=== PATIENT | male | born 1970 | race Caucasian/White ===

== ENCOUNTER 2022-10-15 09:54 | Emergency (ER) | payer MEDICAID ==
[~2022-10-15] VITALS: Ht 180.3 cm; Wt 111.0 kg
[2022-10-15 10:20] VITALS: BP 148/93
== END 2022-10-15 11:10 | disposition home or self-care (01) ==
LOC: ER 09:54
DX: E11.9 Type 2 diabetes mellitus without complications (principal); Z76.0 Encounter for issue of repeat prescription; Z87.39 Personal history of other diseases of the musculoskeletal system and connective tissue

== ENCOUNTER 2023-02-03 15:54 | Emergency (ER) | payer MEDICAID ==
[~2023-02-03] VITALS: Ht 177.8 cm; Wt 111.3 kg
[2023-02-03 16:57] LABS: Basophils # (auto) 0.1 10 ^3/uL (0-0.2); Basophils % (auto) 1.1 % (0.0-2.0); Eosinophils # (auto) 0.2 10 ^3/uL (0-0.8); Eosinophils % (auto) 1.9 % (0.0-7.0); Hematocrit 43.7 % (41.0-53.0); Hemoglobin 14.5 g/dL (13.5-17.5); Lymphocytes # (auto) 1.7 10 ^3/uL (0.4-5.4); Lymphocytes % (auto) 18.4 % (10.0-50.0); Mean Corpuscular Hemoglobin 29.3 pg (28.0-32.0); Mean Corpuscular Hgb Conc. 33.2 g/dL (32.0-36.0); Mean Corpuscular Volume 88.2 fL (80.0-100.0); Monocytes # (auto) 0.6 10 ^3/uL (0-1.3); Monocytes % (auto) 6.2 % (0.0-12.0); Neutrophils # (auto) 6.7 10 ^3/uL (1.6-8.6); Neutrophils % (auto) 72.4 % (37.0-80.0); Nucleated Red Blood Cells % 0.1 %; Red Blood Cells 4.96 10^6/uL (4.5-5.90); White Blood Cell 9.3 10^3/uL (4.4-10.8)
[2023-02-03 17:18] LABS: Alanine Aminotransferase 31 U/L (16-61); Albumin 3.7 g/dL (3.4-5.0); Anion Gap 7 (5-15); Aspartate Aminotransferase 15 U/L (15-37); Blood Alcohol < 3.0 mg/dL (<10); Blood Urea Nitrogen 18 mg/dL (7-18); Calcium 8.8 mg/dL (8.5-10.1); Carbon Dioxide 25 mmol/L (21-32); Chloride 110 mmol/L (98-107); Glucose 149 mg/dL (74-106); Potassium 3.6 mmol/L (3.5-5.1); Sodium 142 mmol/L (136-145)
[2023-02-03 17:21] LABS: Alkaline Phosphatase 53 U/L (45-117); BUN/Creatinine Ratio 18.6 (10.0-20.0); Bilirubin, Total 0.4 mg/dL (0.2-1.0); GFR African American 105 mL/min; GFR Non-African American 87 mL/min; Total Protein 6.5 g/dL (6.4-8.2)
[2023-02-03 17:33] LABS: INR 0.99 (0.9-1.15)
[2023-02-03] MEDS ORDERED: LACTATED RINGER'S 1,000 ML IV ONE (17:45)
[2023-02-03] MEDS ORDERED: KETOROLAC TROMETH 30 MG/ML 1ML VIAL IV ONE (18:30)
[2023-02-03 20:19] VITALS: BP 100/59; PULSE 81; RESP 16; TEMP 99; O2SAT 96
== END 2023-02-03 20:25 | disposition home or self-care (01) ==
LOC: ER 15:54
DX: E86.0 Dehydration (principal); T67.5XXA Heat exhaustion, unspecified, initial encounter; R55 Syncope and collapse; E11.9 Type 2 diabetes mellitus without complications; I10 Essential (primary) hypertension; X58.XXXA Exposure to other specified factors, initial encounter; Y93.89 Activity, other specified; Y92.89 Other specified places as the place of occurrence of the external cause; Y99.8 Other external cause status
CPT/HCPCS: 36415; 71045; 80053; 80320; 82140; 83605; 83880; 84484; 85025; 85379; 85610; 93005; 96374; 99285; J1885

== ENCOUNTER 2023-05-26 15:58 | Emergency (ER) | payer MEDICAID ==
[~2023-05-26] VITALS: Ht 177.8 cm; Wt 110.1 kg
[2023-05-26 16:30] VITALS: BP 114/64; RESP 18; O2SAT 98
[2023-05-26 16:37] VITALS: PULSE 92
[2023-05-26] MEDS ORDERED: MORPHINE SULFATE 4 MG/ML SYR/VIAL IV ONE (16:45)
[2023-05-26] MEDS ORDERED: cefTRIAXone 1GM/50ML D5W 50 ML IV ONE (16:45)
[2023-05-26] MEDS ORDERED: ONDANSETRON HCL 4 MG/2 ML VIAL IV ONE (16:45)
[2023-05-26] MEDS ORDERED: metroNIDAZOLE 500MG/100ML 100 ML IV ONE (16:45)
[2023-05-26] MEDS ORDERED: SODIUM CHLORIDE 0.9% 1,000 ML IVB ONE (16:45)
[2023-05-26] MEDS ORDERED: SODIUM CHLORIDE 0.9% 1,000 ML IV ONE (16:45)
[2023-05-26 16:52] LABS: Basophils # (auto) 0.1 10 ^3/uL (0-0.2); Basophils % (auto) 1.4 % (0.0-2.0); Eosinophils # (auto) 0.2 10 ^3/uL (0-0.8); Eosinophils % (auto) 2.3 % (0.0-7.0); Hematocrit 44.8 % (41.0-53.0); Hemoglobin 14.6 g/dL (13.5-17.5); Lymphocytes # (auto) 1.9 10 ^3/uL (0.4-5.4); Lymphocytes % (auto) 22.7 % (10.0-50.0); Mean Corpuscular Hemoglobin 27.2 pg (28.0-32.0); Mean Corpuscular Hgb Conc. 32.7 g/dL (32.0-36.0); Mean Corpuscular Volume 83.3 fL (80.0-100.0); Monocytes # (auto) 0.5 10 ^3/uL (0-1.3); Monocytes % (auto) 6.3 % (0.0-12.0); Neutrophils # (auto) 5.7 10 ^3/uL (1.6-8.6); Neutrophils % (auto) 67.3 % (37.0-80.0); Nucleated Red Blood Cells % 0.2 %; Red Blood Cells 5.37 10^6/uL (4.5-5.90); Red Cell Distribution Width 15.3 % (11.8-14.3); White Blood Cell 8.5 10^3/uL (4.4-10.8)
[2023-05-26 17:07] LABS: Alanine Aminotransferase 32 U/L (7-40); Albumin 4.6 g/dL (3.2-4.8); Alkaline Phosphatase 61 U/L (46-116); Anion Gap 9 (5-15); Aspartate Aminotransferase 20 U/L (13-40); Blood Urea Nitrogen 9 mg/dL (9-23); Calcium 8.9 mg/dL (8.7-10.4); Carbon Dioxide 27 mmol/L (20-30); Chloride 105 mmol/L (98-107); Glucose 169 mg/dL (74-106); Lipase 28 U/L (12-53); Potassium 3.7 mmol/L (3.5-5.1); Sodium 141 mmol/L (136-145)
[2023-05-26 17:08] LABS: Bilirubin, Total 0.5 mg/dL (0.2-1.0); Total Protein 6.6 g/dL (5.7-8.2)
[2023-05-26 17:12] LABS: Urine Bacteria NONE SEEN /hpf (None Seen); Urine Blood Negative /uL (Negative); Urine Clarity Clear (Clear); Urine Color Yellow (Yellow); Urine Protein, UAD Negative (Negative); Urine Specific Gravity 1.043 (1.001-1.035); Urine WBC <1 /hpf (0 - 3); Urine pH 6.5 (5.0-8.0)
[2023-05-26] MEDS ORDERED: IBU600T PO (17:39)
== END 2023-05-26 20:26 | disposition left against medical advice (07) ==
LOC: ER 15:58
DX: K80.20 Calculus of gallbladder without cholecystitis without obstruction (principal); E11.65 Type 2 diabetes mellitus with hyperglycemia; I10 Essential (primary) hypertension
CPT/HCPCS: 36415; 74176; 76705; 80053; 81001; 83605; 83690; 84484; 85025; 87040; 93005

== ENCOUNTER 2024-11-04 11:55 | Inpatient (IN) | payer MEDICAID ==
[~2024-11-04] VITALS: Ht 176.5 cm; Wt 112.3 kg
[~2024-11-04 11:55] MED LIST: IBU600T PO
--- NOTE | 2024-11-04 12:13 | ED.PDOC ---
GI ASSESSMENT HPI Comments 54 year old male presents to the ED with chief complaint of abdominal pain. Patient reports that he has been experiencing RUQ abdominal pain with associated nausea, vomiting, and diarrhea for the past 3 days. Patient denies any fever, chills, hematemesis, melena, or chest pain. Time Seen by : 12:09 Primary Care Provider: KVNG Reviewed Notes: Nurses Notes, Medications, Allergies Allergies: Coded Allergies: NO KNOWN ALLERGIES (Unverified , 10/15/22) Home Meds Active Scripts Ibuprofen Micronized (MOTRIN TABLET) 600 Mg Tb, 600 MG PO TID PRN for 5 Days, #15 TAB *Black box warning-NSAIDS can increase risk of CT & hypertension, GI irritation, ulceration, bleed, perferation. Do not use post cardiac surgery. Use short duration/lowest effective dose. Prov:MALLIKA MCGUIRE MD 05/26/23 Information Source: Patient Mode of Arrival: Ambulatory Timing: Days Duration: Since onset Prehospital treatment: None Quality: Sharp Vomitus: Watery Stool: Watery Severity: Moderate Recent: None Recent Hx of: None Pain Location: RUQ Modifying Factors: Nothing Associated sign and symptoms: Nausea, Vomiting, Diarrhea, Abdominal Pain Past Medical History PAST MEDICAL HISTORY: Arthritis, DM, Gallstones, HTN Surgical History: Denies all surgeries Family History Family History: Reviewed,noncontributory to illness Social History Smoker: Cigarettes Alcohol: Denies ETOH Use Drugs: Denies Drug Use Lives In: Home Constitutional: denies: chills, diaphoresis, fatigue, fever, malaise, sweats, weakness, others EENTM: denies: blurred vision, double vision, ear bleeding, ear discharge, ear drainage, ear pain, ear ringing, eye pain, eye redness, hearing loss, mouth pain, mouth swelling, nasal discharge, nose bleeding, nose congestion, nose pain, photophobia, tearing, throat pain, throat swelling, voice changes, others Respiratory: denies: cough, hemoptysis, orthopnea, SOB at rest, shortness of breath, SOB with excertion, stridor, wheezing, others Cardiovascular: denies: chest pain, dizzy spells, diaphoresis, Dyspnea on exertion, edema, irregular heart beat, left arm pain, lightheadedness, palpitations, PND, syncope, others Gastrointestinal: reports: abdominal pain, diarrhea, nausea, vomiting; denies: abdomen distended, blood streaked bowels, constipated, dysphagia, difficulty swallowing, hematemesis, melena, poor appetite, poor fluid intake, rectal bleeding, rectal pain, others Genitourinary: denies: burning, dysuria, flank pain, frequency, hematuria, incontinence, penile discharge, penile sore, pain, testicle pain, testicle swelling, urgency, others Neurological: denies: dizziness, fainting, headache, left sided numbness, left sided weakness, numbness, paresthesia, pre-existing deficit, right sided numbness, right sided weakness, seizure, speech problems, tingling, tremors, weakness, others Musculoskeletal: denies: back pain, gout, joint pain, joint swelling, muscle pain, muscle stiffness, neck pain, others Integumetry: denies: bruises, change in color, change in hair/nails, dryness, laceration, lesions, lumps, rash, wounds, others Allergic/Immunocompromised: denies: Difficulty Healing, Frequent Infections, Hives, Itching, others Hematologic/Lymphatic: denies: anemia, blood clots, easy bleeding, easy bruising, swollen glands, others Endocrine: denies: excessive hunger, excessive sweating, excessive thirst, excessive urination, flushing, intolerance to cold, intolerance to heat, unexplained weight gain, unexplained weight loss, others Psychiatric: denies: anxiety, bipolar disorder, depression, hopeless, panic disorder, schizophrenia, sleepless, suicidal, others All Other Systems: Reviewed and Negative Physical Exam General Appearance: No Apparent Distress, Normal HEENT: Normal ENT Inspection, Pharynx Normal, TMs Normal Neck: Full Range of Motion, Non-Tender, Normal, Normal Inspection Respiratory: Chest Non-Tender, Lungs Clear, No Accessory Muscle Use, No Respiratory Distress, Normal Breath Sounds Cardiovascular: No Edema, No JVD, No Murmur, No Gallop, Normal Peripheral Pulses, Regular Rate/Rhythm Breast Exam: Deferred Gastrointestinal: No Organomegaly, No Pulsatile Mass, Normal Bowel Sounds, Soft, Tenderness (RUQ tenderness) Genitalia: Deferred Pelvic: Deferred Rectal: Deferred Extremities: No calf tenderness, Normal capillary refill, Normal inspection, Normal range of motion, Non-tender, No pedal edema Musculoskeletal : Apperance: Normal Neurologic: Alert, belt dresser II-XII nml as Tested, No Motor Deficits, Normal Affect, Normal Mood, No Sensory Deficits Cerebellar Function: Normal Reflexes: Normal Skin: Dry, Normal Color, Warm Lymphatic: No Adenopathy Was a procedure done? Was a procedure done?: No GI differential Dx Differential Diagnosis: Appendicitis, Bowel Obstruction, Cholecystitis, Gastritis/PUD, Gastroenteritis, Hernia, Hepatitis, Inflammatory BD, Ischemic Bowel, UTI, Urolithiasis, Electrolyte Imbalance, Impaction, Ischemic Bowel, Mas s, Kidney Stone X-Ray, Labs, Meds, VS Vital Signs Date Time Temp Pulse Resp B/P (MAP) Pulse Ox O2 Delivery O2 Flow Rate FiO2 11/04/24 13:21 119 20 96 Room Air* 0 21 11/04/24 13:14 97.5 119 20 112/72 (85) 96 97.5 11/04/24 12:00 97.9 125 18 113/73 (86) 97 97.9 Lab Test 11/04/24 12:25 Range/Units White Blood Count 7.0 4.4-10.8 10^3/uL Red Blood Count 5.84 4.5-5.90 10^6/uL Hemoglobin 13.8 13.5-17.5 g/dL Hematocrit 43.5 41.0-53.0 % Mean Corpuscular Volume 74.5 L 80.0-100.0 fL Mean Corpuscular Hemoglobin 23.6 L 28.0-32.0 pg Mean Corpuscular Hemoglobin Concent 31.6 L 32.0-36.0 g/dL Red Cell Distribution Width 17.7 H 11.8-14.3 % Platelet Count 380 140-450 10^3/uL Mean Platelet Volume 7.7 6.9-10.8 fL Neutrophils (%) (Auto) 60.0 37.0-80.0 % Lymphocytes (%) (Auto) 23.1 10.0-50.0 % Monocytes (%) (Auto) 14.4 H 0.0-12.0 % Eosinophils (%) (Auto) 1.8 0.0-7.0 % Basophils (%) (Auto) 0.7 0.0-2.0 % Neutrophils # (Auto) 4.2 1.6-8.6 10 ^3/uL Lymphocytes # (Auto) 1.6 0.4-5.4 10 ^3/uL Monocytes # (Auto) 1.0 0-1.3 10 ^3/uL Eosinophils # (Auto) 0.1 0-0.8 10 ^3/uL Basophils # (Auto) 0 0-0.2 10 ^3/uL Nucleated Red Blood Cells 0.4 % Sodium Level 136 136-145 mmol/L Potassium Level 3.6 3.5-5.1 mmol/L Chloride Level 102 98-107 mmol/L Carbon Dioxide Level 24 20-31 mmol/L Anion Gap 10 5-15 Blood Urea Nitrogen 16 9-23 mg/dL Creatinine 0.98 0.700-1.30 mg/dL Glomerular Filtration Rate Calc 92 >90 mL/min BUN/Creatinine Ratio 16.3 10.0-20.0 Serum Glucose 195 H 74-106 mg/dL Calcium Level 9.5 8.7-10.4 mg/dL Total Bilirubin 0.5 0.2-1.0 mg/dL Aspartate Amino Transferase (AST) 65 H 13-40 U/L Alanine Aminotransferase (ALT) 78 H 7-40 U/L Alkaline Phosphatase 55 46-116 U/L Total Protein 7.1 5.7-8.2 g/dL Albumin 4.6 3.2-4.8 g/dL Lipase 26 12-53 U/L Time of 1ST Reevaluation: 13:09 Reevaluation 1ST: Unchanged Time of 2ND Reevaluation: 13:27 Reevaluation 2ND: Unchanged Patient Education/Counseling: Diagnosis, Treatment, Prognosis, Need For Follow Up Family Education/Counseling: No Family Present Additional Information Previous visits: 06/05/23 for cholelithiasis The following tests were ordered, and results were reviewed by me: CT Abd/Pel, Lipase, UA, CBC, CMP Additional Information was gathered from interviewing the following independent historians: None I reviewed and agreed with the following test results read by other providers: CT Abd/Pel I discussed treatment and results with medical personnel and: Patient Comprehensive systems review obtained and negative except for what is stated in the HPI. pt has evidence of ileus vs early SBO. pt will be admitted for bowel rest, hydration Departure 1 Departure Time of Disposition: 13:28 Impression: Primary Impression: SBO (small bowel obstruction) Disposition: ADMITTED INPATIENT Admit to: Med Surg Condition: Other Discharged With: Self Critical Care Note Critical Care Time?: Yes (55 min-critical care time only) Critical care comment: Due to concerns for patients condition deteriorating, the care required my highest level of attention and readiness to intervene. I assessed the patient, reviewed the medical records, ordered the appropriate tests and treatments, then reassessed for results and responsiveness. I communicated with medical personnel and consultants and formulated a plan of care. Total critical care time excludes any procedures Stability Stability form required: No Heart Score Heart Score: Heart Score Response (Comments) Value History N/A 0 EKG N/A 0 Age N/A 0 Risk Factors N/A 0 Troponin N/A 0 Total 0 I personally scribed for JESSICA PRAKASH MD ([email or web address]) on 11/04/24 at 12:12. Electronically submitted by Rivera Salinas ([facility]). JESSICA PRAKASH MD Nov 04, 2024 12:12
[2024-11-04 12:46] LABS: Basophils # (auto) 0 10 ^3/uL (0-0.2); Basophils % (auto) 0.7 % (0.0-2.0); Eosinophils # (auto) 0.1 10 ^3/uL (0-0.8); Eosinophils % (auto) 1.8 % (0.0-7.0); Hematocrit 43.5 % (41.0-53.0); Hemoglobin 13.8 g/dL (13.5-17.5); Lymphocytes # (auto) 1.6 10 ^3/uL (0.4-5.4); Lymphocytes % (auto) 23.1 % (10.0-50.0); Mean Corpuscular Hemoglobin 23.6 pg (28.0-32.0); Mean Corpuscular Hgb Conc. 31.6 g/dL (32.0-36.0); Mean Corpuscular Volume 74.5 fL (80.0-100.0); Monocytes % (auto) 14.4 % (0.0-12.0); Neutrophils # (auto) 4.2 10 ^3/uL (1.6-8.6); Nucleated Red Blood Cells % 0.4 %; Platelet Count (auto) 380 10^3/uL (140-450); Red Blood Cells 5.84 10^6/uL (4.5-5.90); Red Cell Distribution Width 17.7 % (11.8-14.3)
[2024-11-04 13:03] LABS: Alkaline Phosphatase 55 U/L (46-116); Anion Gap 10 (5-15); BUN/Creatinine Ratio 16.3 (10.0-20.0); Blood Urea Nitrogen 16 mg/dL (9-23); Calcium 9.5 mg/dL (8.7-10.4); Carbon Dioxide 24 mmol/L (20-31); Chloride 102 mmol/L (98-107); Lipase 26 U/L (12-53); Potassium 3.6 mmol/L (3.5-5.1); Sodium 136 mmol/L (136-145); Total Protein 7.1 g/dL (5.7-8.2)
[2024-11-04 13:04] LABS: Albumin 4.6 g/dL (3.2-4.8); Bilirubin, Total 0.5 mg/dL (0.2-1.0)
[2024-11-04 13:05] LABS: Alanine Aminotransferase 78 U/L (7-40); Aspartate Aminotransferase 65 U/L (13-40); Glucose 195 mg/dL (74-106)
--- NOTE | 2024-11-04 13:15 | DVH ---
CT CT AB PEL WO CON-NO ORAL OR IV INDICATION: abdominal pain : 54 old Male abdominal pain EXAM DATE: 11/04/2024 12:11 PM COMPARISON: CT CT AB PEL WO CON-NO ORAL OR IV on DOS: 05/26/23 RADIATION DOSE: CTDIvol: 23.03 mGy, DLP: 1279.29 mGy*cm PROCEDURE: Helical CT images were obtained of the abdomen and pelvis without IV contrast Sagittal and coronal reconstructions are provided. ORAL CONTRAST: None. ADDITIONAL IMAGES / REFORMATS: None All C T scans at this medical facility are performed using dose modulation techniques as appropriate to a p erformed exam including the following: Automated exposure control was utilized; adjustment of the MA and/or KV according to patient size; and use of iterative reconstruction technique. FINDINGS: LUNG BASE: By basilar atelectasis. LIVER: Hepatic steatosis. GALLBLADDER AND BILIARY TREE: Gallstone in the gallbladder. No intra- or extrahepatic biliary ductal dilation. PANCREAS: Normal. SPLEEN: Normal. BOWEL: Mildly distended loops of small bowel measuring up to 3.4cm. Normal appendix. ADRENALS: Normal. KIDNEYS AND URETER: Normal. BLADDER: Normal. REPRODUCTIVE ORGANS: Normal. LYMPH NODES:No lymphadenopathy. PERITONEUM: No ascites or free air. No other fluid collection. VESSELS: Scattered atherosclerotic calcifications are noted. RETROPERITONEUM: Normal. ABDOMINAL WALL: Normal. BONES: Scattered osseous degenerative changes are noted. IMPRESSION: Mildly distended loops of small bowel measuring up to 3.4 cm could be seen with ileus or an early par tial obstructive bowel obstruction. Hepatic steatosis. Cholelithiasis.
[2024-11-04 13:21] VITALS: PULSE 119; RESP 20; O2SAT 96
[2024-11-04 13:54] LABS: Urine Bacteria None Seen /hpf (None Seen)
[2024-11-04 14:13] LABS: Urine Blood Negative /uL (Negative); Urine Clarity Clear (Clear); Urine Color Yellow (Yellow); Urine Protein, UAD Negative (Negative); Urine Specific Gravity 1.043 (1.001-1.035); Urine Squamous Epithelial Cell FEW /hpf (<5); Urine Urobilinogen Normal (Negative); Urine WBC < 1 /HPF (0-3)
[2024-11-04] MEDS: HYDROcodone-ACET 5/325MG TAB PO ONE (16:06)
[2024-11-04] MEDS ORDERED: DOCUSATE SOD 100 MG CAP PO PRN (18:00)
[2024-11-04] MEDS ORDERED: HYDROcodone-ACET 5/325MG TAB PO PRN (18:00)
[2024-11-04] MEDS ORDERED: ACETAMINOPHEN 325 MG TAB PO PRN (18:00)
[2024-11-04] MEDS ORDERED: ONDANSETRON HCL 4 MG/2 ML VIAL IV PRN (18:00)
--- NOTE | 2024-11-04 18:07 | DVHHP2 ---
Admitting Diagnosis: abdominal pain History of Present Illness 54 year old male presents to the ED with chief complaint of abdominal pain. Patient reports that he has been experiencing RUQ abdominal pain with associated nausea, vomiting, and diarrhea for the past 3 days. Patient denies any fever, chills, hematemesis, melena, or chest pain. PAST MEDICAL HISTORY: Arthritis, DM, Gallstones, HTN Surgical History: Denies all surgeries Family History: Reviewed,noncontributory to illness Smoker: Cigarettes Alcohol: Denies ETOH Use Drugs: Denies Drug Use Lives In: Home Allergies: Coded Allergies: NO KNOWN ALLERGIES (Unverified , 10/15/22) Home Meds Active Scripts Ibuprofen Micronized (MOTRIN TABLET) 600 Mg Tb, 600 MG PO TID PRN for 5 Days, #15 TAB *Black box warning-NSAIDS can increase risk of CT & hypertension, GI irritation, ulceration, bleed, perferation. Do not use post cardiac surgery. Use short duration/lowest effective dose. Prov:MALLIKA MCGUIRE MD 05/26/23 Vital Signs Vital Signs Date Time Temp Pulse Resp B/P (MAP) Pulse Ox O2 Delivery O2 Flow Rate FiO2 11/04/24 13:21 119 20 96 Room Air* 0 21 11/04/24 13:14 97.5 112/72 (85) 97.5 Physical Exam Gen: 54 y.o. man, lying in bed. Mod disterss HEENT: AT/NC Heart: RRR Lung: CTA b/l Abd: soft, tender to palpate epigastric, non-distended Msk: no edema or cyanosis Neuro: AOx3, no focal deficit Results Labs Test 11/04/24 12:25 11/04/24 12:08 Range/Units White Blood Count 7.0 4.4-10.8 10^3/uL Red Blood Count 5.84 4.5-5.90 10^6/uL Hemoglobin 13.8 13.5-17.5 g/dL Hematocrit 43.5 41.0-53.0 % Mean Corpuscular Volume 74.5 L 80.0-100.0 fL Mean Corpuscular Hemoglobin 23.6 L 28.0-32.0 pg Mean Corpuscular Hemoglobin Concent 31.6 L 32.0-36.0 g/dL Red Cell Distribution Width 17.7 H 11.8-14.3 % Platelet Count 380 140-450 10^3/uL Mean Platelet Volume 7.7 6.9-10.8 fL Neutrophils (%) (Auto) 60.0 37.0-80.0 % Lymphocytes (%) (Auto) 23.1 10.0-50.0 % Monocytes (%) (Auto) 14.4 H 0.0-12.0 % Eosinophils (%) (Auto) 1.8 0.0-7.0 % Basophils (%) (Auto) 0.7 0.0-2.0 % Neutrophils # (Auto) 4.2 1.6-8.6 10 ^3/uL Lymphocytes # (Auto) 1.6 0.4-5.4 10 ^3/uL Monocytes # (Auto) 1.0 0-1.3 10 ^3/uL Eosinophils # (Auto) 0.1 0-0.8 10 ^3/uL Basophils # (Auto) 0 0-0.2 10 ^3/uL Nucleated Red Blood Cells 0.4 % Sodium Level 136 136-145 mmol/L Potassium Level 3.6 3.5-5.1 mmol/L Chloride Level 102 98-107 mmol/L Carbon Dioxide Level 24 20-31 mmol/L Anion Gap 10 5-15 Blood Urea Nitrogen 16 9-23 mg/dL Creatinine 0.98 0.700-1.30 mg/dL Glomerular Filtration Rate Calc 92 >90 mL/min BUN/Creatinine Ratio 16.3 10.0-20.0 Serum Glucose 195 H 74-106 mg/dL Calcium Level 9.5 8.7-10.4 mg/dL Total Bilirubin 0.5 0.2-1.0 mg/dL Aspartate Amino Transferase (AST) 65 H 13-40 U/L Alanine Aminotransferase (ALT) 78 H 7-40 U/L Alkaline Phosphatase 55 46-116 U/L Total Protein 7.1 5.7-8.2 g/dL Albumin 4.6 3.2-4.8 g/dL Lipase 26 12-53 U/L Urine Color Yellow Yellow Urine Clarity Clear Clear Urine pH 6.0 5.0-9.0 Urine Specific [place] 1.043 H 1.001-1.035 Urine Protein Negative Negative Urine Ketones 2+ H Negative Urine Blood Negative Negative /uL Urine Nitrite Negative Negative Urine Bilirubin Negative Negative Urine Urobilinogen Normal Negative mg/dL Urine Leukocyte Esterase Negative Negative /uL Urine RBC <1 0 - 3 /hpf Urine Microscopic WBC < 1 0-3 /HPF Urine Squamous Epithelial Cells Few <5 /hpf Urine Bacteria None seen None Seen /hpf Urine Glucose 4+ H Normal mg/dL Primary Diagnosis Acute abdominal pain likely due to enteritis Plan pt has diarrhea CT abd/pelv shows enteritis ceftriaxone 1g daily, flagyl 500mg q8h f/u with bcx IVF anti-ematic clear liquid advance as tolerated Full code Lovenox for dvt ppx GI ppx Plan discussed with: Patient Problems List: (1) Enteritis Status: Acute Date of Service: Nov 04, 2024 Billing Provider: GUILHERME NICE MD Common Visit Codes: [id number] INP/OBS CARE (HIGH) GUILHERME NICE MD Nov 04, 2024 18:07
[2024-11-04] MEDS: cefTRIAXone 1GM/50ML D5W 50 ML IV SCH (18:30)
[2024-11-04] MEDS: LACTATED RINGER'S 1,000 ML IV ONE (18:31)
[2024-11-04] MEDS: metroNIDAZOLE 500MG/100ML 100 ML IV SCH (18:47)
[2024-11-04 20:45] VITALS: BP 158/84; PULSE 83; RESP 15; TEMP 99; O2SAT 97
[2024-11-04] MEDS ORDERED: DEXTROSE (50%) 50ML SYRG IV PRN (20:45)
[2024-11-04 20:47] VITALS: PULSE 83; RESP 18; O2SAT 96
[2024-11-04] MEDS: InsuLIN REG 1unit/0.01ml Soln (100units/ml) SC SCH (21:14)
[2024-11-04] MEDS: SODIUM CHLOR 0.9% PF (SALINE LOCK) 10ML VIAL/SYR IV SCH (21:14)
[2024-11-04] MEDS: ACCU-CHEK COMFORT CURVE STRIP VI SCH (21:16)
[2024-11-04] MEDS ORDERED: MELO15TA29 PO (21:36)
[2024-11-04] MEDS ORDERED: EZET-10 PO (21:36)
[2024-11-04] MEDS ORDERED: BUPR-60 PO (21:36)
[2024-11-04] MEDS ORDERED: ASPI1CHW5 PO (21:36)
[2024-11-04] MEDS ORDERED: LIDO1PAD55 TOP (21:36)
[2024-11-04] MEDS ORDERED: DAPA1TAB4 PO (21:36)
[2024-11-04] MEDS ORDERED: BECL80AE11 INH (21:36)
[2024-11-04] MEDS ORDERED: DULO1CAP5 PO (21:36)
[2024-11-04] MEDS ORDERED: METF-372 PO (21:36)
[2024-11-04] MEDS ORDERED: PIOG1TAB37 PO (21:36)
[2024-11-04] MEDS ORDERED: DULA1INJ SC (21:36)
[2024-11-04] MEDS ORDERED: METH-1182 PO (21:36)
[2024-11-04] MEDS ORDERED: BACL10TA PO (21:36)
[2024-11-04] MEDS ORDERED: TRAM50TA2 PO (21:36)
[2024-11-04] MEDS ORDERED: ALBU108A5 INH (21:36)
[2024-11-04] MEDS ORDERED: ACET300T51 PO (21:36)
[2024-11-04] MEDS ORDERED: TERB250T92 PO (21:36)
[2024-11-04] MEDS ORDERED: TELM1TAB33 PO (21:36)
[2024-11-04] MEDS ORDERED: GABA-1250 PO (21:36)
[2024-11-04] MEDS ORDERED: INSUINJ37 SC (21:36)
[2024-11-04 22:50] VITALS: BP 109/72; PULSE 99; RESP 18; TEMP 98.5; O2SAT 94
[2024-11-04] MEDS: HYDROmorphone HCL 2 MG/ML VL/or syr IV PRN (22:51)
[2024-11-05 05:00] VITALS: BP 111/70; PULSE 88; RESP 18; TEMP 98; O2SAT 93
[2024-11-05] MEDS: PANTOPRAZOLE 40 MG TAB PO SCH (05:18)
[2024-11-05 08:00] VITALS: PULSE 99; RESP 20; O2SAT 96
[2024-11-05 09:00] VITALS: BP 104/73; PULSE 99; RESP 20; TEMP 98.4; O2SAT 96
[2024-11-05] MEDS ORDERED: ENOXAPARIN SOD 40 MG/0.4 ML SYRINGE SC SCH (10:00)
== END 2024-11-05 09:01 | disposition left against medical advice (07) | DRG 249 ==
LOC: ER 11:55 → OVERFLOW 18:00 → WEST WING 18:02
PROVIDERS: ADMIT Internal Medicine; ATTEND Internal Medicine
DX: K52.9 Noninfective gastroenteritis and colitis, unspecified (principal); K80.20 Calculus of gallbladder without cholecystitis without obstruction; E11.9 Type 2 diabetes mellitus without complications; I10 Essential (primary) hypertension; F17.210 Nicotine dependence, cigarettes, uncomplicated; Z53.29 Procedure and treatment not carried out because of patient's decision for other reasons
CPT/HCPCS: 36415; 74176; 80053; 81001; 82962; 83690; 85025; 99291; G0378; J1815; J3490